=== PATIENT | female | born 1950 | race African-American/Black ===

== ENCOUNTER 2018-03-13 13:55 | Emergency (ER) | payer OTHER ==
[2018-03-13] VITALS (7 sets, daily range): BP systolic 139–161; BP diastolic 72–81; PULSE 48–53; RESP 16; TEMP 97.8; O2SAT 95–98
[2018-03-13] MEDS ORDERED: CENTCHW4 CHEW (14:36)
[2018-03-13] MEDS ORDERED: CALC1TAB87 PO (14:36)
[2018-03-13] MEDS ORDERED: SODIUM CHLOR 0.9% 1000 ML INJ 1,000 ML IV ONE (14:45)
[2018-03-13] MEDS ORDERED: SODIUM CHLORIDE 0.9% FLUSH 10 ML FLUSH IVF PRN (14:45)
--- NOTE | 2018-03-13 14:53 | PD ---
HPI . Lightheadedness Chief Complaint: Cardiac Complaint Time Seen by Provider: 14:07 Travel History International Travel<30 days: No Contact w/Intl Traveler<30days: No Traveled to known affect area: No History of Present Illness HPI This patient presents with a couple of week long history of feeling lightheaded. She also complains of congestion, hoarseness and cough. She states that she has someone to check her blood pressure earlier and it was found to be normal but she was found to have a slow heart rate. That person suggested that she be seen. She went to an urgent care center. She was diagnosed with bronchitis and sinusitis at the urgent care center and was given prescriptions for medications for that. However, the patient was found to be bradycardic. She had an EKG done that shows a sinus bradycardia with a rate in the 40s. Normal blood pressure. She was instructed to come to the hospital for further evaluation of the bradycardia. Symptom onset was a couple weeks ago. Symptoms have been persistent and progressively worsening. Symptoms are mild. PFSH Past Medical History Arthritis: Yes Diminished Hearing: No GERD: Yes ?: Not Past Surgical History Appendectomy: Yes Cholecystectomy: Yes Social History Alcohol Use: Yes (occasional wine) Tobacco Use: No Substance Use: No Allergies-Medications (Allergen,Severity, Reaction): Coded Allergies: No Known Drug Allergies (Verified Allergy, Unknown, 03/13/18) Reported Meds & Prescriptions Reported Meds & Active Scripts Active Reported Calcium 600 with Vitamin D (Calcium Carbonate-Cholecalciferol) 600-400 mg-Unit Tab 1 Tab PO DAILY Centrum (Multiple Vitamins W/ Minerals) 1 Chew 1 Tab CHEW DAILY Review of Systems Except as stated in HPI: all other systems reviewed are Neg General / Constitutional: No: Fever, Chills Eyes: No: Drainage, Redness HENT: Positive: Sore Throat, Congestion, Other (Hoarseness) Respiratory: Positive: Cough Gastrointestinal: No: Nausea, Vomiting, Diarrhea Neurologic: Positive: Weakness Physical Exam Narrative GENERAL: Healthy-appearing 67-year-old woman. SKIN: warm/dry. HEAD: Normocephalic. Atraumatic. EYES: Pupils equal and round. Extraocular movements are intact. ENT: Mucous membranes pink and moist. NECK: Supple. Full range of motion without pain.. CARDIOVASCULAR: Sinus bradycardia in the 50s. Blood pressure is normal. RESPIRATORY: No accessory muscle use. Clear to auscultation. Breath sounds equal bilaterally. GASTROINTESTINAL: Abdomen soft. Nontender. Bowel sounds present. Nondistended. MUSCULOSKELETAL: No obvious deformities. Normal muscle tone. NEUROLOGICAL: Awake and alert. No obvious cranial nerve deficits. Motor grossly within normal limits. Normal speech. PSYCHIATRIC: Appropriate mood and affect; insight and judgment normal. Data Data Last Documented VS Vital Signs Date Time Temp Pulse Resp B/P (MAP) Pulse Ox O2 Delivery O2 Flow Rate FiO2 03/13/18 14:30 59 16 139/75 (96) 46 16 149/75 (99) 52 16 140/76 (97) 03/13/18 14:08 98 Room Air 03/13/18 13:57 97.8 Orders Orders Orthostatic Vital Signs (03/13/18 14:08) Electrocardiogram (03/13/18 14:38) Basic Metabolic Panel (Bmp) (03/13/18 14:38) Complete Blood Count With Diff (03/13/18 14:38) Magnesium (Mg) (03/13/18 14:38) Troponin I (03/13/18 14:38) Ecg Monitoring (03/13/18 14:38) Iv Access Insert/Monitor (03/13/18 14:38) Oximetry (03/13/18 14:38) Sodium Chloride 0.9% Flush (Ns Flush) (03/13/18 14:45) Chest, Pa & Lat (03/13/18 14:38) Sodium Chlor 0.9% 1000 Ml Inj (Ns 1000 M (03/13/18 14:45) MDM Medical Decision Making Medical Screen Exam Complete: Yes Emergency Medical Condition: Yes Differential Diagnosis Differential diagnosis of weakness includes but is not limited to infection, CVA , electrolyte disturbance, renal failure, hypoglycemia Narrative Course This patient presents for the evaluation of weakness and dizziness. She has an associated upper respiratory infection. She was seen at an urgent care center earlier today and found to be bradycardic. It is a sinus bradycardia with a normal blood pressure. She was sent to us for further evaluation of bradycardia as well as with the recommendation that she receive some IV fluids. I have ordered a liter of fluid. I will check some baseline labs. Her care is being turned over to Dr. Spangler at this time. Diagnosis Primary Impression: Weakness Additional Impression: Sinus bradycardia Condition: Stable Bharti Ortega MD 15, 2018 14:53
--- NOTE | 2018-03-13 14:58 | RADRPT ---
EXAM DATE: 03/13/2018 2:53 PM EDT AGE/SEX: 67 years / Female INDICATIONS: Left side chest pain CLINICAL DATA: This is the patient's initial encounter. Patient reports that signs and symptoms have been present for 1 day and indicates a pain score of 5/10. MEDICAL/SURGICAL HISTORY: None. None. COMPARISON: No prior exams available for comparison. FINDINGS: PA and lateral views of the chest demonstrate the lungs to be symmetrically aerated without evidence of mass, infiltrate or effusion. The cardiomediastinal contours are unremarkable. Osseous structures are intact. CONCLUSION: Negative chest Electronically signed by: Tex Call MD 03/13/2018 2:57 PM EDT
[2018-03-13 15:22] LABS: BASOPHIL # 0.1 TH/MM3 (0-0.2); BASOPHIL % 2.1 % (0.0-2.0); HEMATOCRIT 42.7 % (35.0-46.0); HEMOGLOBIN 14.1 GM/DL (11.6-15.3); LYMPH % 37.9 % (9.0-44.0); LYMPHOCYTE # 1.4 TH/MM3 (1.0-4.8); MEAN CELL VOLUME 93.1 FL (80.0-100.0); MEAN CORPUSCULAR HEMOGLOBIN 30.7 PG (27.0-34.0); MEAN PLATELET VOLUME 9.8 FL (7.0-11.0); MONOCYTE # 0.3 TH/MM3 (0-0.9); PLATELET COUNT 136 TH/MM3 (150-450); RED BLOOD COUNT 4.58 MIL/MM3 (4.00-5.30); RED CELL DISTRIBUTION WIDTH 13.7 % (11.6-17.2); WHITE BLOOD COUNT 3.8 TH/MM3 (4.0-11.0)
[2018-03-13 16:43] LABS: CHLORIDE 109 MEQ/L (98-107); SODIUM (NA) 141 MEQ/L (136-145)
[2018-03-13 16:46] LABS: BICARBONATE 26.3 MEQ/L (21.0-32.0); BLOOD UREA NITROGEN 12 MG/DL (7-18); GLUCOSE,RANDOM 78 MG/DL (74-106); MAGNESIUM 2.1 MG/DL (1.5-2.5)
[2018-03-13 16:49] LABS: CREATININE 0.79 MG/DL (0.50-1.00); GLOMERULAR FILTRATION RATE 88 ML/MIN (>89)
[2018-03-13 16:54] LABS: TROPONIN I LESS THAN 0.02 NG/ML (0.02-0.05)
--- NOTE | 2018-03-13 17:15 | PD ---
Data Data Last Documented VS Vital Signs Date Time Temp Pulse Resp B/P (MAP) Pulse Ox O2 Delivery O2 Flow Rate FiO2 03/13/18 16:24 50 16 153/81 (105) 95 Room Air 03/13/18 13:57 97.8 Orders Orders Orthostatic Vital Signs (03/13/18 14:08) Electrocardiogram (03/13/18 14:38) Basic Metabolic Panel (Bmp) (03/13/18 14:38) Complete Blood Count With Diff (03/13/18 14:38) Magnesium (Mg) (03/13/18 14:38) Troponin I (03/13/18 14:38) Ecg Monitoring (03/13/18 14:38) Iv Access Insert/Monitor (03/13/18 14:38) Oximetry (03/13/18 14:38) Sodium Chloride 0.9% Flush (Ns Flush) (03/13/18 14:45) Chest, Pa & Lat (03/13/18 14:38) Sodium Chlor 0.9% 1000 Ml Inj (Ns 1000 M (03/13/18 14:45) Labs Laboratory Tests Test 03/13/18 15:15 03/13/18 16:20 White Blood Count 3.8 TH/MM3 Red Blood Count 4.58 MIL/MM3 Hemoglobin 14.1 GM/DL Hematocrit 42.7 % Mean Corpuscular Volume 93.1 FL Mean Corpuscular Hemoglobin 30.7 PG Mean Corpuscular Hemoglobin Concent 33.0 % Red Cell Distribution Width 13.7 % Platelet Count 136 TH/MM3 Mean Platelet Volume 9.8 FL Neutrophils (%) (Auto) 50.0 % Lymphocytes (%) (Auto) 37.9 % Monocytes (%) (Auto) 9.0 % Eosinophils (%) (Auto) 1.0 % Basophils (%) (Auto) 2.1 % Neutrophils # (Auto) 2.0 TH/MM3 Lymphocytes # (Auto) 1.4 TH/MM3 Monocytes # (Auto) 0.3 TH/MM3 Eosinophils # (Auto) 0.0 TH/MM3 Basophils # (Auto) 0.1 TH/MM3 CBC Comment DIFF FINAL Differential Comment Blood Urea Nitrogen 12 MG/DL Creatinine 0.79 MG/DL Random Glucose 78 MG/DL Calcium Level 8.0 MG/DL Magnesium Level 2.1 MG/DL Sodium Level 141 MEQ/L Potassium Level 4.2 MEQ/L Chloride Level 109 MEQ/L Carbon Dioxide Level 26.3 MEQ/L Anion Gap 6 MEQ/L Estimat Glomerular Filtration Rate 88 ML/MIN Troponin I LESS THAN 0.02 NG/ML [facility] Supervised Visit with [facility]: No Narrative Course This is a 67-year-old female who presents to the emergency department with sinus congestion, frontal headache and some fatigue. It sounds like the symptoms have been intermittent and been going on subacutely. She was seen at an urgent care and had an EKG demonstrating sinus bradycardia and was referred here. She was on telemetry for 2 hours here. Her heart rate never dropped below 40 and she has no evidence of heart block. Electrolytes are reassuring and troponin is normal. She has had a normal blood pressure throughout her stay and she appears well. I do not think she requires admission, as she seems to be tolerating her heart rate well and I suspect this is a subacute issue but she would benefit from outpatient cardiology referral. Patient will be discharged home. Diagnosis Primary Impression: Weakness Additional Impression: Sinus bradycardia Patient Instructions: General Instructions Additional Instruction: If you develop severe chest pain, shortness of breath, sweating, lightheadedness , dizziness or difficulty breathing return to the emergency department immediately. Follow-up with a housekeeping staff regarding her heart rate. Med/Other Pt SpecificInfo: No Change to Meds Disposition: 01 DISCHARGE HOME Condition: Stable Whitney Spangler MD Mar 13, 2018 17:15
--- NOTE | 2018-03-14 12:38 | EKG ---
Date Performed: 03/13/2018 Time Performed: 15:12:58 PTAGE: 67 years EKG: SINUS BRADYCARDIA BORDERLINE ECG NO PREVIOUS TRACING DOCTOR: Gautam Saavedra Interpretating Date/Time 03/14/2018 12:36:13
== END 2018-03-13 17:50 | disposition home or self-care (01) ==
LOC: PHED 13:55
DX: R53.1 Weakness (principal); R00.1 Bradycardia, unspecified; K21.9 Gastro-esophageal reflux disease without esophagitis; R05 Cough; M19.90 Unspecified osteoarthritis, unspecified site; R51 Headache; R07.9 Chest pain, unspecified
CPT/HCPCS: 71046; 80048; 83735; 84484; 85025; 93005; 99285; J7030